=== PATIENT | female | born 1985 | race African-American/Black ===

== ENCOUNTER 2023-03-18 10:06 | Emergency (ER) | payer BC ==
[~2023-03-18] VITALS: Ht 160 cm; Wt 72.6 kg
== END 2023-03-18 13:01 | disposition home or self-care (01) ==
LOC: ER 10:06
PROVIDERS: General Practice
DX: O23.31 Infections of other parts of urinary tract in pregnancy, first trimester (principal); N39.0 Urinary tract infection, site not specified; Z88.2 Allergy status to sulfonamides

== ENCOUNTER 2023-07-09 12:34 | Outpatient (CLI) | payer OTHER | END 2023-07-09 12:38 | disposition home or self-care (01) | LOC: PRENATAL 12:34 | PROVIDERS: ATTEND Obstetrics & Gynecology Maternal & Fetal Medicine | DX: O35.3XX0 Maternal care for (suspected) damage to fetus from viral disease in mother, not applicable or unspecified (principal); O09.529 Supervision of elderly multigravida, unspecified trimester; O44.00 Complete placenta previa NOS or without hemorrhage, unspecified trimester; Z3A.22 22 weeks gestation of pregnancy ==

== ENCOUNTER 2023-08-21 11:19 | Outpatient (CLI) | payer OTHER | END 2023-08-21 11:20 | disposition home or self-care (01) | LOC: PRENATAL 11:19 | PROVIDERS: ATTEND Obstetrics & Gynecology Maternal & Fetal Medicine | DX: O26.849 Uterine size-date discrepancy, unspecified trimester (principal); O09.529 Supervision of elderly multigravida, unspecified trimester; O43.90 Unspecified placental disorder, unspecified trimester; Z3A.28 28 weeks gestation of pregnancy ==

== ENCOUNTER → 2023-09-30 11:02 | Outpatient (CLI) | payer OTHER | END | disposition home or self-care (01) | LOC: PRENATAL 11:02 | PROVIDERS: ATTEND Obstetrics & Gynecology Maternal & Fetal Medicine | DX: O26.849 Uterine size-date discrepancy, unspecified trimester (principal); O36.8199 Decreased fetal movements, unspecified trimester, other fetus; O09.529 Supervision of elderly multigravida, unspecified trimester; O43.90 Unspecified placental disorder, unspecified trimester; Z3A.34 34 weeks gestation of pregnancy ==

== ENCOUNTER 2023-10-24 06:02 | Inpatient (IN) | payer BC ==
[~2023-10-24] VITALS: Ht 160 cm; Wt 75.7 kg
[2023-10-24] MEDS ORDERED: CLINDAMYCIN PHOSPHATE 900 MG in DEXTROSE 5 % IN WATER 100 ML IV SCH (08:00)
[2023-10-24] MEDS ORDERED: CLINDAMYCIN PHOSPHATE 150 MG/ML (900mg) ONE (08:03)
[2023-10-24 08:05] LABS: URINE BACTERIA 536.6 uL (0.0-1933); URINE EPITHELIAL CELLS 19.1 uL (0.0-38.8); URINE RBC 3.5 uL (0.0-20.8); URINE WBC 13.2 uL (0.0-23.2)
[2023-10-24 08:14] LABS: HEMATOCRIT 34.1 % (36.0-45.00); HEMOGLOBIN 11.6 g/dL (12.0-15.00); MEAN CELL VOLUME 87.5 fL (80.00-100.00); MEAN CORPUSCULAR HEMOGLOBIN 29.7 pg (27.00-32.0); PLATELET COUNT 245 K/uL (150-450); RED CELL DISTRIBUTION WIDTH 15.8 % (11.5-14.5)
[2023-10-24 08:28] LABS: PH,URINE 6.5; URINE BILIRRUBIN SMALL (NEGATIVE); URINE BLOOD NEGATIVE; URINE GLUCOSE NEGATIVE (NEGATIVE); URINE LEUKOCYTE NEGATIVE; URINE NITRATE NEGATIVE; URINE PROTEIN TRACE (NEGATIVE); URINE UROBILINOGEN 0.2 E.U./dl
[2023-10-24 08:32] LABS: ALBUMIN 2.5 gm/dL (3.4-5.0); BILIRUBIN TOTAL 0.37 mg/dL (0.3-1.2); CREATININE SERUM 0.74 mg/dL (0.55-1.02); GFR 87.37; GLOBULINA 3.3 G/DL (2.4-3.5); POTASSIUM 4.16 mEq/L (3.5-5.1); TOTAL PROTEIN 5.8 gm/dL (6.4-8.2)
[2023-10-24 08:39] LABS: INR 0.94; PARTIAL THROMBOPLASTIN TIME 27.9 SECONDS (22.0-34.0)
[2023-10-24 08:40] LABS: PROTHROMBIN TIME 9.9 SECONDS (9.0-11.5)
[2023-10-24] MEDS ORDERED: OXYTOCIN 500 ML IV SCH (09:00)
[2023-10-24 09:13] LABS: URINE APPEARANCE CLEAR; URINE COLOR YELLOW
[2023-10-24] MEDS ORDERED: RINGERS SOLUTION,LACTATED 1,000 ML IV SCH (09:15)
[2023-10-24] MEDS ORDERED: PRENATAL CAPLE1 EAC1 PO (09:37)
[2023-10-24] MEDS ORDERED: ADULT LOW DOSE81 M1 PO (09:37)
[2023-10-24] MEDS ORDERED: VALTREX1000 MG PO (09:37)
[2023-10-24] MEDS ORDERED: MORPHINE SULFATE 4 MG/ML VIAL IV ONE (11:45)
[2023-10-24] MEDS ORDERED: CHLORHEXIDINE GLUCONATE 120 ML BOTTLE TOP ONE (15:28)
[2023-10-24] MEDS ORDERED: ERYTHROMYCIN BASE 1 GM TUBE OP ONE (15:28)
[2023-10-24] MEDS ORDERED: OXYTOCIN 20 UNITS/1000ML RL PIGGYBAG IV ONE (15:29)
[2023-10-24] MEDS ORDERED: NALOXONE HCL 0.4 MG/ML AMPUL ONE (16:21)
[2023-10-24] MEDS ORDERED: ACETAMINOPHEN 500 MG GEL..CAP PO PRN (17:15)
[2023-10-24] MEDS ORDERED: IBUprofen 400 MG TABLET PO PRN (17:15)
[2023-10-24] MEDS ORDERED: OXYTOCIN 1,000 ML IV SCH (17:15)
[2023-10-24] MEDS ORDERED: CHLORHEXIDINE GLUCONATE 120 ML BOTTLE TOP SCH (17:15)
[2023-10-24] MEDS ORDERED: ERYTHROMYCIN BASE 1 GM TUBE OP SCH (17:15)
[2023-10-24] MEDS ORDERED: NALOXONE HCL 0.4 MG/ML AMPUL IM ONE (17:30)
[2023-10-24 22:45] LABS: ABG PH 7.317 (7.35-7.45); ABG PO2 31.5 mmHg (80-100); ABG pCO2 37.9 mmHg (35-45); BASE EXCESS -6.5 mmol/l; SaO2 52.6 %; Tco2 20.1 mmol/l; o2 21 %
[2023-10-26] MEDS ORDERED: ANUSOL-HC30 G2 TOP (09:53)
== END 2023-10-26 13:44 | disposition home or self-care (01) | DRG 807 ==
LOC: OB/GYN 06:02 → LDR 06:02 → OB/GYN 23:07
PROVIDERS: ADMIT Obstetrics & Gynecology; ATTEND Obstetrics & Gynecology
PROC: 10E0XZZ Delivery of Products of Conception, External Approach (ICD-10-PCS; principal; 2023-10-24)
PROC: 0KQM0ZZ Repair Perineum Muscle, Open Approach (ICD-10-PCS; 2023-10-24)
PROC: 4A1HXCZ Monitoring of Products of Conception, Cardiac Rate, External Approach (ICD-10-PCS; 2023-10-24)
DX: O70.1 Second degree perineal laceration during delivery (principal); Z37.0 Single live birth; Z3A.38 38 weeks gestation of pregnancy; Z20.822 Contact with and (suspected) exposure to COVID-19